=== PATIENT | male | born 1955 | race Hispanic/Latino ===

== ENCOUNTER 2017-04-26 01:29 | Inpatient (IN) | payer BC ==
[2017-04-12 15:22] LABS: MEAN CELL HGB 28.4 pg (26-34); MEAN CELL HGB CONCENTRATION 33.7 g/dL (33-37); MEAN CORP VOLUME 84.2 fL (78-100); MEAN PLATELET VOLUME 11.6 fL (7.8-11.0); RED CELL DISTRIBUTION WIDTH 12.6 % (11.5-14.5); WHITE BLOOD CELL 8.7 10^3/uL (4.5-11.0)
[2017-04-12 15:44] LABS: CARBON DIOXIDE 25.6 mmol/L (20.0-32)
[2017-04-25 16:15] VITALS: BP 147/88
[2017-04-26] VITALS (13 sets, daily range): BP systolic 128–157; BP diastolic 74–94
[~2017-04-26] VITALS: Ht 185.4 cm; Wt 109.3 kg
[~2017-04-26 01:29] MED LIST: CIPR500T3 PO; TAMS0.4C2 PO
[2017-04-26] MEDS ORDERED: LACTATED RINGERS 1,000 ML IV SCH ×3 (06:00→10:30)
[2017-04-26] MEDS ORDERED: NS 100ML 200 ML IV ONE (06:43)
[2017-04-26] MEDS ORDERED: VERSED ONE (06:43)
[2017-04-26] MEDS ORDERED: DIPRIVAN IV ONE (06:44)
[2017-04-26] MEDS ORDERED: SUBLIMAZE ONE (06:44)
[2017-04-26] MEDS ORDERED: SODIUM CHLORIDE IR ONE ×6 (07:37→22:33)
[2017-04-26] MEDS ORDERED: AMINOACETIC ACID IR ONE ×3 (07:38→09:22)
[2017-04-26] MEDS ORDERED: LEVAQUIN 100 ML IV ONE (08:00)
[2017-04-26] MEDS ORDERED: ZOFRAN IV PRN (10:00)
[2017-04-26] MEDS ORDERED: DEMEROL IV PRN ×2 (10:00→12:00)
[2017-04-26] MEDS ORDERED: SUBLIMAZE IV PRN (10:00)
[2017-04-26] MEDS ORDERED: LEVAQUIN IV SCH (10:00)
[2017-04-26] MEDS ORDERED: PHENERGAN IV PRN ×3 (10:00→14:00)
[2017-04-26] MEDS ORDERED: NORCO 7.5MG PO PRN (10:00)
[2017-04-26 10:22] LABS: BASOPHIL # 0.1 10^3/uL (0.0-0.1); BASOPHIL % 0.8 % (0.0-0.2); EOSINOPHIL # 0.2 10^3/uL (0.0-0.2); EOSINOPHIL % 1.9 % (0.0-5.0); HEMOGLOBIN 15.5 g/dL (13.9-16.3); MEAN CELL HGB 28.6 pg (26-34); MEAN CELL HGB CONCENTRATION 33.4 g/dL (33-37); MEAN CORP VOLUME 85.6 fL (78-100); MEAN PLATELET VOLUME 11.9 fL (7.8-11.0); MONOCYTES # 0.6 10^3/uL (0.3-0.8); MONOCYTES % 7.9 % (5.0-12.0); NEUTROPHIL # 5.1 10^3/uL (1.8-7.7); NEUTROPHILS % 64.1 % (41.0-85.0); RED CELL DISTRIBUTION WIDTH 12.8 % (11.5-14.5)
[2017-04-26] MEDS: LACTATED RINGERS 1,000 ML IV SCH ×2 (10:30→21:31)
[2017-04-26 10:46] LABS: CALCIUM 8.6 mg/dL (8.4-10.5)
--- NOTE | 2017-04-26 10:50 | NUR ---
arrivaL patient arrived to the floor from or. denies any pain. attached to special vitals machine. cbi is running and functioning properly. pink tinged fluid noted in the penn tube.
[2017-04-26] MEDS ORDERED: WATER ONE (11:01)
--- NOTE | 2017-04-26 14:41 | OPH ---
DATE OF SURGERY: 04/26/2017 PREOPERATIVE DIAGNOSES: Urinary retention, obstructive prostatic hyperplasia. FINAL DIAGNOSES: Urinary retention, obstructive prostatic hyperplasia. PROCEDURES: TUR of the prostate, stage 1. DESCRIPTION OF PROCEDURE: The patient was brought to the cystoscopy room and was put in sitting position and a low spinal anesthesia was then performed. After the successful spinal anesthesia, which was given by the WATER ANALYST, the patient was placed in the supine position for 5 minutes and then was placed in the lithotomy position on the cystoscopy table. The genitalia was then prepped and draped aseptically in the usual manner after removal of the indwelling ureteral Garnett catheter. First, the urethra was dilated with a 28-Greek curved sound and then a 26-resectoscope sheath was inserted per urethra up to the bladder. With the use of a 30-degree angle lens, the posterior urethra was visualized. Verumontanum was identified and there was a very large trilobar obstructive prostatic hyperplasia. The bladder was congested with some trabeculation, but no tumor, no calculi seen. Transurethral resection was then started at the bladder neck between 5 and 7 and was carried proximal to the verumontanum followed by the lateral lobes and some of the roof. After one hour of resection, there was still markedly enlarged prostate that is still left there. At this juncture, it was decided to do the TUR of the prostate in 2 stages. So, after one hour, I stopped the procedure to prevent reabsorption of fluid and some electrolytes imbalance. After adequate some hemostasis, the instrument was removed and a 22-Greek Garnett catheter was inserted per urethra up to the bladder and the balloon was inflated with 35 mL of fluid. The catheter was irrigated. The return was pinkish, clear. Again, procedure was terminated and the patient was then stabilized and transferred to the recovery room in stable condition. PLAN: To do the stage 2 operation sometime next week. Santos Valdez MD DR: AUGUSTA/rebeca JOB# [id number]
--- NOTE | 2017-04-26 16:02 | NUR ---
irrigation irrigated cbi with 30 ml of sterile water and expressed moderate amount of small clots. reattached cbi fluids.
[2017-04-26] MEDS ORDERED: URISPAS PO ONE (18:04)
[2017-04-26] MEDS: NORCO 7.5MG PO PRN (21:30)
--- NOTE | 2017-04-27 00:05 | NUR ---
CBI CONTINUES , STILL OLSON COLORED OUT PUT WITH BLOOD CLOTS. DENIES PAIN AT THIS TIME.
[2017-04-27 00:52] VITALS: BP 140/91
[2017-04-27] MEDS ORDERED: SODIUM CHLORIDE IR ONE ×3 (04:35→08:29)
[2017-04-27 05:08] VITALS: BP 136/86
[2017-04-27] MEDS: NORCO 7.5MG PO PRN (05:31)
--- NOTE | 2017-04-27 05:45 | NUR ---
IRRIGATED PT NGUYEN GOT A FEW SMALL BLOOD CLOTS. PT STATED WAS BETTER.
[2017-04-27 05:54] LABS: HEMOGLOBIN 15.5 g/dL (13.9-16.3); MEAN CELL HGB 28.8 pg (26-34); MEAN CELL HGB CONCENTRATION 33.3 g/dL (33-37); MEAN CORP VOLUME 86.3 fL (78-100); MEAN PLATELET VOLUME 11.9 fL (7.8-11.0); WHITE BLOOD CELL 10.8 10^3/uL (4.5-11.0)
[2017-04-27 05:59] LABS: CARBON DIOXIDE 28.1 mmol/L (20.0-32)
--- NOTE | 2017-04-27 06:20 | NUR ---
UNABLE TO CHART IN CBI ASSESSMENT STATED TO HIGH OF NUMBER. CBI INPUT WAS29,600 AND OUT WAS 32,575. URINE OUT PUT WAS 2,975.
[2017-04-27] MEDS: LACTATED RINGERS 1,000 ML IV SCH ×2 (08:52→16:30)
[2017-04-27] MEDS ORDERED: ZOFRAN IV PRN (10:00)
[2017-04-27] MEDS ORDERED: PHENERGAN IV PRN (10:00)
[2017-04-27] MEDS ORDERED: SUBLIMAZE IV PRN (10:00)
[2017-04-27] MEDS: LEVAQUIN IV SCH (10:00)
--- NOTE | 2017-04-27 10:00 | NUR ---
DISCHARGE PLAN CM VISITED WITH PATIENT AND FAMILY MEMBERS CONCERNING HIS DISCHARGE PLAN AND NEED. PATIENT LIVES @ HOME WITH AND IS INDEPENDENT ON ADLS. CM ADDRESSED PATIENTS SAFETY HANDOUT, NO QUESTIONS ASKED AND VOICED UNDERSTANDING. PATIENT AND FAMILY DENY CURRENT NEEDS @ THIS TIME. CONTACT INFORMATION PROVIDED. CURRENT GOAL FOR PATIENT IS TO RETURN BACK HOME TO ROUTINE CARE UPON DISCHARGE. NO FURTHER CM OR DISCHARGE NEEDS KNOWN @ THIS TIME.
[2017-04-27 11:49] VITALS: BP 139/84
--- NOTE | 2017-04-27 14:08 | PNH ---
DATE: 04/27/2017 SUBJECTIVE: This is postoperative day #1. The patient is afebrile, vital signs stable. Urine is clear. The patient feels comfortable. Indwelling urethral Garnett catheter is in place, draining clear urine. PLAN: So the plan is to discontinue the IV today and change to Hep-Lock and we will also discontinue the CBI. I will order the patient to get out of bed and force fluids. Santos Valdez MD DR: AUGUSTA/rebeca JOB# [id number] MAIA
[2017-04-27] MEDS: URISPAS PO SCH ×2 (15:20→21:03)
[2017-04-27 16:32] VITALS: BP 138/93
--- NOTE | 2017-04-27 16:53 | NUR ---
BILLING CONCERNS: PT'S VOICED CONCERNS REGARDING CO-PAYMENT AND HER PART OWED. SS REACHED OUT TO REMA RANDOLPH, FINANCIAL COUNSELOR TO COME AND SPEAK TO PT'S REGARDING CONCERNS. BLUE PHONE WAS UTILIZED AND REMA ANSWERED PT'S QUESTIONS AND CONCERNS REGARDING CO-PAY.
[2017-04-27 19:45] VITALS: BP 146/96
[2017-04-27 23:47] VITALS: BP 136/86
--- NOTE | 2017-04-28 02:21 | NUR ---
Pt resting quietly with eyes closed nad observed, family x1 at bedside
[2017-04-28 04:41] VITALS: BP 134/90
--- NOTE | 2017-04-28 06:33 | NUR ---
report to Shellie RODRIGUEZ
[2017-04-28 08:36] VITALS: BP 154/99
[2017-04-28] MEDS: URISPAS PO SCH (08:36)
[2017-04-28] MEDS: LEVAQUIN IV SCH (10:00)
[2017-04-28 12:15] VITALS: BP 142/96
[2017-04-28] MEDS ORDERED: FLAV100T PO (13:19)
--- NOTE | 2017-04-29 06:05 | PNH ---
DATE: 04/28/2017 DISCHARGE SUMMARY This is the second postop day, the patient is afebrile, and the urine is clear. The Garnett catheter was irrigated. Small clots must have strained, but after irrigation the urine became clear. After visiting again this afternoon, the urine is clear with the Garnett catheter, and it was to planned to discharge the patient, and we will do a second stage TUR of the prostate in a week. The case was discussed with the family and also with his and son. We will discontinue also the Hep-Lock, and we will follow up with the patient. Santos Valdez MD DR: AUGUSTA/rebeca JOB# [id number]
== END 2017-04-28 14:48 | disposition home or self-care (01) | DRG 714 ==
LOC: MS 01:29
PROVIDERS: ADMIT Urology; ATTEND Urology
PROC: 0VB08ZZ Excision of Prostate, Via Natural or Artificial Opening Endoscopic (ICD-10-PCS; principal; 2017-04-26 08:03)
DX: N40.1 Benign prostatic hyperplasia with lower urinary tract symptoms (principal); R33.8 Other retention of urine
CPT/HCPCS: 36415; 80048; 80051; 80053; 84153; 85025; 85027; 85610; 88305; 93005; A4338; J2250; J3010; J3490; J7030; J7050; J7120

== ENCOUNTER 2017-05-04 00:57 | Inpatient (IN) | payer BC ==
[~2017-05-04] VITALS: Ht 185.4 cm; Wt 106.3 kg
[2017-05-04] VITALS (17 sets, daily range): BP systolic 86–153; BP diastolic 47–88
[~2017-05-04 00:57] MED LIST changes: +FLAV100T PO
[2017-05-04] MEDS ORDERED: LACTATED RINGERS 1,000 ML ONE ×3 (05:19→16:57)
[2017-05-04] MEDS ORDERED: LEVAQUIN 100 ML IV ONE ×2 (05:53→08:53)
[2017-05-04] MEDS: LACTATED RINGERS 1,000 ML IV SCH ×2 (06:20→09:45)
[2017-05-04 06:25] LABS: BASOPHIL # 0.1 10^3/uL (0.0-0.1); BASOPHIL % 0.9 % (0.0-0.2); EOSINOPHIL # 0.6 10^3/uL (0.0-0.2); EOSINOPHIL % 6.9 % (0.0-5.0); HEMOGLOBIN 15.3 g/dL (13.9-16.3); LYMPHOCYTES # 1.9 10^3/uL (1.0-4.8); LYMPHOCYTES % 21.5 % (24.0-44.0); MEAN CELL HGB 29.1 pg (26-34); MEAN CELL HGB CONCENTRATION 34.3 g/dL (33-37); MEAN CORP VOLUME 84.8 fL (78-100); MONOCYTES # 0.8 10^3/uL (0.3-0.8); NEUTROPHIL # 5.3 10^3/uL (1.8-7.7); NEUTROPHILS % 61.4 % (41.0-85.0); RED CELL DISTRIBUTION WIDTH 12.8 % (11.5-14.5); WHITE BLOOD CELL 8.6 10^3/uL (4.5-11.0)
[2017-05-04 06:38] LABS: CALCIUM 9.1 mg/dL (8.4-10.5); CARBON DIOXIDE 25.9 mmol/L (20.0-32)
[2017-05-04] MEDS ORDERED: VERSED ONE (06:38)
[2017-05-04] MEDS ORDERED: ZOFRAN ONE ×2 (06:38→16:58)
[2017-05-04] MEDS ORDERED: DECADRON ONE ×2 (06:38→16:57)
[2017-05-04] MEDS ORDERED: TORADOL ONE (06:38)
[2017-05-04] MEDS ORDERED: XYLOCAINE ONE (06:38)
[2017-05-04] MEDS ORDERED: SUBLIMAZE ONE ×2 (06:39→16:58)
[2017-05-04] MEDS ORDERED: DIPRIVAN IV ONE (06:39)
[2017-05-04] MEDS ORDERED: TYLENOL PO ONE (07:00)
[2017-05-04] MEDS ORDERED: WATER ONE ×4 (07:15→17:00)
[2017-05-04] MEDS ORDERED: SODIUM CHLORIDE IR ONE ×3 (07:24→17:59)
[2017-05-04] MEDS ORDERED: AMINOACETIC ACID IR ONE ×6 (07:25→18:25)
[2017-05-04] MEDS ORDERED: ZOFRAN IV PRN (07:30)
[2017-05-04] MEDS ORDERED: SUBLIMAZE IV PRN ×2 (07:30→20:00)
[2017-05-04] MEDS ORDERED: DILAUDID IV PRN ×2 (07:30→20:00)
[2017-05-04 11:00] LABS: BASOPHIL # 0.1 10^3/uL (0.0-0.1); BASOPHIL % 0.7 % (0.0-0.2); EOSINOPHIL # 0.3 10^3/uL (0.0-0.2); EOSINOPHIL % 3.7 % (0.0-5.0); HEMOGLOBIN 14.5 g/dL (13.9-16.3); LYMPHOCYTES # 1.5 10^3/uL (1.0-4.8); LYMPHOCYTES % 17.9 % (24.0-44.0); MEAN CELL HGB 29.2 pg (26-34); MEAN CELL HGB CONCENTRATION 34.1 g/dL (33-37); MEAN CORP VOLUME 85.5 fL (78-100); MEAN PLATELET VOLUME 11.3 fL (7.8-11.0); MONOCYTES # 0.4 10^3/uL (0.3-0.8); MONOCYTES % 5.1 % (5.0-12.0); NEUTROPHIL # 5.9 10^3/uL (1.8-7.7); NEUTROPHILS % 72.1 % (41.0-85.0); RED CELL DISTRIBUTION WIDTH 12.9 % (11.5-14.5); WHITE BLOOD CELL 8.2 10^3/uL (4.5-11.0)
[2017-05-04] MEDS ORDERED: LACTATED RINGERS 1,000 ML IV SCH (11:00)
[2017-05-04] MEDS ORDERED: PHENERGAN IV PRN ×5 (11:00→23:00)
[2017-05-04] MEDS ORDERED: DEMEROL IV PRN ×5 (11:00→20:00)
[2017-05-04] MEDS ORDERED: LEVAQUIN IV SCH ×4 (11:00→19:30)
[2017-05-04] MEDS ORDERED: NORCO 7.5MG PO PRN ×3 (11:00→19:30)
[2017-05-04 11:17] LABS: CARBON DIOXIDE 26.9 mmol/L (20.0-32)
--- NOTE | 2017-05-04 11:25 | NUR ---
arrival pt arrived to room in bed. cbi infusing through [address] way catheter with pink tinged fluid noted in catheter bag. patient denies any pain. attached to special vitals machine and set to q15. given ice water per request
--- NOTE | 2017-05-04 11:46 | NUR ---
scd placed on bilateral calf scd's
--- NOTE | 2017-05-04 14:00 | NUR ---
cbi patients cbi has been dark zuniga and started to clot and clog. ordered h&h. informed dr. torres. Irrigated bladder with sterile water using a [address] torres arrived. Dr. Torres irrigated cbi several times and asked to call or crew. obtained consent for cysto with fulgaration
[2017-05-04] MEDS ORDERED: NS 3000ML IRR IR ONE ×5 (14:02→23:05)
[2017-05-04] MEDS ORDERED: URISPAS PO SCH (15:00)
[2017-05-04 16:10] LABS: HEMOGLOBIN 15.2 g/dL (13.9-16.3)
[2017-05-04] MEDS ORDERED: DILAUDID ONE (16:58)
--- NOTE | 2017-05-04 17:24 | NUR ---
or patient left floor for or
--- NOTE | 2017-05-04 17:31 | OPH ---
DATE OF SURGERY: 05/04/2017 PREOPERATIVE DIAGNOSIS: Marked obstructive prostatic hyperplasia. FINAL DIAGNOSIS: Marked obstructive prostatic hyperplasia. PROCEDURES: TUR of the prostate. DESCRIPTION OF PROCEDURE: The patient was brought to the cystoscopy room and was put in supine position on the cystoscopy table. After the patient was given a low spinal and general anesthesia, the patient was placed in the lithotomy position. He was then prepped and draped aseptically in the usual manner after removal of the Garnett catheter. First, a 24-Tuvaluan resectoscope sheath was inserted per urethra up to the bladder. With the use of the Foroblique lens, the posterior urethra was visualized and there was still a marked obstruction noted after the stage 1 TUR of the prostate was done a week ago. Bladder was inspected and there was some congestion noted. No tumor, no calculi seen. TUR of the prostate again was started near the bladder neck area and then the lateral lobes were resected first and some in the roof. After resection of the obstructive tissue for almost an hour, the procedure was terminated. All bleeders were promptly coagulated during the course of the resection. All tissue tips were then evacuated from the bladder. Again, the bladder was irrigated. Return flow was clear. The procedure was terminated. Instrument was removed and a Garnett catheter was inserted. The patient was then awakened and was transferred to the recovery room in stable condition. Santos Valdez MD DR: AUGUSTA/rebeca JOB# [id number]
[2017-05-04 19:29] LABS: BASOPHIL % 0.1 % (0.0-0.2); HEMOGLOBIN 12.3 g/dL (13.9-16.3); LYMPHOCYTES # 0.7 10^3/uL (1.0-4.8); LYMPHOCYTES % 3.4 % (24.0-44.0); MEAN CELL HGB 29.1 pg (26-34); MEAN CELL HGB CONCENTRATION 34.2 g/dL (33-37); MEAN CORP VOLUME 85.3 fL (78-100); MONOCYTES # 0.9 10^3/uL (0.3-0.8); MONOCYTES % 4.6 % (5.0-12.0); NEUTROPHIL # 18.2 10^3/uL (1.8-7.7); NEUTROPHILS % 91.5 % (41.0-85.0); RED CELL DISTRIBUTION WIDTH 12.5 % (11.5-14.5); WHITE BLOOD CELL 19.9 10^3/uL (4.5-11.0)
[2017-05-04] MEDS ORDERED: ROCEPHIN ONE (19:38)
[2017-05-04] MEDS ORDERED: NS 100ML 100 ML IV ONE (19:39)
[2017-05-04] MEDS ORDERED: EPHEDRINE SULFATE ONE (19:40)
[2017-05-04 19:41] LABS: CALCIUM 8.6 mg/dL (8.4-10.5); CARBON DIOXIDE 22.5 mmol/L (20.0-32)
[2017-05-04] MEDS ORDERED: ROCEPHIN 1,000 MG in NS 100ML 100 ML IV ONE (20:00)
[2017-05-04] MEDS: URISPAS PO SCH (20:47)
[2017-05-04] MEDS: NORCO 7.5MG PO PRN (20:47)
[2017-05-04 21:06] LABS: DIFFERENTIAL COMMENT NORMAL; LYMPHOCYTE 4 % (25-36); MONOCYTE 7 % (3-9); SEGMENTED NEUTROPHILS 81 % (31-76)
[2017-05-04 23:53] LABS: BASOPHIL % 0.1 % (0.0-0.2); HEMOGLOBIN 12.5 g/dL (13.9-16.3); LYMPHOCYTES # 0.5 10^3/uL (1.0-4.8); LYMPHOCYTES % 2.9 % (24.0-44.0); MEAN CELL HGB 29.2 pg (26-34); MEAN CELL HGB CONCENTRATION 34.3 g/dL (33-37); MEAN PLATELET VOLUME 11.2 fL (7.8-11.0); MONOCYTES # 0.4 10^3/uL (0.3-0.8); MONOCYTES % 2.2 % (5.0-12.0); NEUTROPHIL # 16.4 10^3/uL (1.8-7.7); NEUTROPHILS % 94.3 % (41.0-85.0); RED CELL DISTRIBUTION WIDTH 12.6 % (11.5-14.5); WHITE BLOOD CELL 17.4 10^3/uL (4.5-11.0)
[2017-05-05] VITALS (7 sets, daily range): BP systolic 103–127; BP diastolic 61–78
[2017-05-05 00:09] LABS: CALCIUM 8.4 mg/dL (8.4-10.5)
[2017-05-05] MEDS: LACTATED RINGERS 1,000 ML IV SCH ×3 (02:12→15:37)
[2017-05-05] MEDS ORDERED: NS 3000ML IRR IR ONE (04:31)
[2017-05-05] MEDS: NORCO 7.5MG PO PRN ×2 (04:53→15:18)
[2017-05-05 05:22] LABS: HEMOGLOBIN 11.7 g/dL (13.9-16.3); MEAN CELL HGB 28.9 pg (26-34); MEAN CELL HGB CONCENTRATION 33.5 g/dL (33-37); MEAN CORP VOLUME 86.2 fL (78-100); MEAN PLATELET VOLUME 11.1 fL (7.8-11.0); RED CELL DISTRIBUTION WIDTH 12.7 % (11.5-14.5); WHITE BLOOD CELL 14.5 10^3/uL (4.5-11.0)
[2017-05-05 05:33] LABS: CARBON DIOXIDE 26.7 mmol/L (20.0-32)
--- NOTE | 2017-05-05 06:25 | NUR ---
CBI INPUT 34,500 ML OUT PUT 36,950. URINE OUT PUT IS 2,450. UNABLE TO CHARTY ON CBI INTERVENTION SAYS IT IS TO HIGH OF A NUMBER.
[2017-05-05] MEDS ORDERED: ZOFRAN IV PRN ×2 (07:30)
[2017-05-05] MEDS ORDERED: DILAUDID IV PRN ×2 (07:30)
[2017-05-05] MEDS ORDERED: SUBLIMAZE IV PRN ×2 (07:30)
[2017-05-05] MEDS: URISPAS PO SCH ×3 (07:51→20:50)
[2017-05-05] MEDS ORDERED: LEVAQUIN 100 ML IV ONE ×2 (08:53)
--- NOTE | 2017-05-05 10:30 | NUR ---
DISCHARGE PLAN CM VISITED WITH PATIENT AND FAMILY MEMBERS CONCERNING HIS DISCHARGE PLAN AND NEED. PATIENT LIVES @ HOME WITH , IS INDEPENDENT ON ADLS AND WORKS DAILY. CM ADDRESSED PATIENTS SAFETY HANDOUT, NO QUESTIONS ASKED AND VOICED UNDERSTANDING. PATIENT AND FAMILY DENY CURRENT NEEDS @ THIS TIME WITH CONTACT INFORMATION PROVIDED. CURRENT GOAL FOR PATIENT IS TO RETURN BACK HOME TO ROUTINE CARE UPON DISCHARGE. NO FURTHER CM OR DISCHARGE NEEDS KNOWN @ THIS TIME.
[2017-05-05] MEDS ORDERED: LEVAQUIN IV SCH (11:00)
[2017-05-05] MEDS ORDERED: TORADOL ONE (17:11)
--- NOTE | 2017-05-05 18:44 | NUR ---
report received report from offgoing shift
[2017-05-06] MEDS: LACTATED RINGERS 1,000 ML IV SCH ×3 (01:12→19:26)
[2017-05-06 04:37] VITALS: BP 105/61
[2017-05-06 05:31] LABS: BASOPHIL # 0.1 10^3/uL (0.0-0.1); BASOPHIL % 0.4 % (0.0-0.2); EOSINOPHIL # 0.5 10^3/uL (0.0-0.2); EOSINOPHIL % 4.1 % (0.0-5.0); HEMOGLOBIN 9.3 g/dL (13.9-16.3); LYMPHOCYTES # 2.1 10^3/uL (1.0-4.8); LYMPHOCYTES % 16.1 % (24.0-44.0); MEAN CELL HGB 29.2 pg (26-34); MEAN CELL HGB CONCENTRATION 32.7 g/dL (33-37); MONOCYTES # 1.4 10^3/uL (0.3-0.8); MONOCYTES % 10.6 % (5.0-12.0); NEUTROPHIL # 8.8 10^3/uL (1.8-7.7); NEUTROPHILS % 68.4 % (41.0-85.0); RED CELL DISTRIBUTION WIDTH 12.8 % (11.5-14.5); WHITE BLOOD CELL 12.8 10^3/uL (4.5-11.0)
--- NOTE | 2017-05-06 06:45 | NUR ---
report report given to o/c shift
[2017-05-06] MEDS: URISPAS PO SCH ×3 (09:17→21:09)
[2017-05-06] MEDS: NORCO 7.5MG PO PRN ×3 (09:17→21:10)
[2017-05-06 11:17] VITALS: BP 111/65
[2017-05-06 11:57] VITALS: BP 100/61
--- NOTE | 2017-05-06 12:29 | PNH ---
DATE: 05/06/2017 SUBJECTIVE: Postoperative day #2, the patient is afebrile. Urine is clear. The Garnett catheter was irrigated and no clots obtained and the urine is clear; however, the hemoglobin this morning was 9.3, probably due to some dilution, but the vital signs are stable and the white count is down to 12,800. PLAN: We will continue the IV fluids today and we will just observe the patient further. Santos Valdez MD DR: AUGUSTA/rebeca JOB# [id number]
--- NOTE | 2017-05-06 13:12 | OPH ---
DATE OF SURGERY: 05/04/2017 The patient was brought back to the OR, on the evening of 05/04/2017 because of sudden onset of severe gross hematuria, which is not controlled by irrigation or by CBI. He has a TUR of the prostate stage 2 done this morning and immediate postop, the patient's urine was clear with a CBI, but it started to bleed profusely late in the afternoon. PREOPERATIVE DIAGNOSIS: Gross hematuria status post TURP. PROCEDURES: Cystoscopy, evacuation of blood clots with the prostatic fulguration. DESCRIPTION OF PROCEDURE: The patient was brought into the cystoscopy room and was put in supine position on the cystoscopy table. After the patient was given a satisfactory and adequate LMA general anesthesia, the patient was placed in the lithotomy position. The genitalia was then prepped and draped aseptically in the usual manner. After removal of the Garnett catheter, a 24-New Zealander resectoscope sheath was then inserted per urethra up to the bladder and the bladder was then irrigated initially to remove all the blood clots in the bladder. After removal of the blood clots in the bladder and the prostatic fossa, with a 30-degree angle lens, the posterior urethra was visualized and all the blood clots were then resected, which was adherent to the prostatic fossa and also some of the area, which was oozing, was then fulgurated after adequate extraction of the blood clots that was adherent to the prostatic fossa all around from the lateral lobes to the roof, then to the floor. The bladder was again irrigated and after that the return flow was clear. It was almost more than an hour to accomplish all this result. After that, the instrument was removed and a Garnett catheter was inserted and the balloon was inflated with 30 mL of sterile water. The catheter was again irrigated. The return flow was clear. The procedure was terminated. The patient was awakened, was transferred to the recovery room in stable condition. Santos Valdez MD DR: AUGUSTA/rebeca JOB# [id number]
--- NOTE | 2017-05-06 13:14 | PNH ---
DATE: 05/06/2017 This is postoperative day #1, the patient is afebrile, urine is clear. Bladder was irrigated and 1 small clot was removed, but it was very clear. So at this time, the vital signs are stable. So the CBI will be discontinued today. The hemoglobin this morning was 11.7 and the WBC is 14,500. We will continue giving him Levaquin once a day. The patient feels comfortable. He is a little bit weak, but vital signs are stable. Santos Valdez MD DR: AUGUSTA/rebeca JOB# [id number]
[2017-05-06 15:30] VITALS: BP 105/60
--- NOTE | 2017-05-06 18:34 | NUR ---
REPORT REPORT RECEIVED FROM CHEIKH RODRIGUEZ ASSUMED CARE OF PT
[2017-05-06 19:21] VITALS: BP 110/66
[2017-05-07] VITALS: BP 115/63
[2017-05-07] MEDS: LACTATED RINGERS 1,000 ML IV SCH (04:40)
[2017-05-07 05:11] VITALS: BP 119/68
[2017-05-07 06:25] LABS: BASOPHIL # 0.1 10^3/uL (0.0-0.1); BASOPHIL % 0.7 % (0.0-0.2); EOSINOPHIL # 0.7 10^3/uL (0.0-0.2); HEMOGLOBIN 10.3 g/dL (13.9-16.3); LYMPHOCYTES # 2.5 10^3/uL (1.0-4.8); LYMPHOCYTES % 21.6 % (24.0-44.0); MEAN CELL HGB 29.1 pg (26-34); MEAN CELL HGB CONCENTRATION 32.8 g/dL (33-37); MEAN CORP VOLUME 88.7 fL (78-100); MEAN PLATELET VOLUME 10.5 fL (7.8-11.0); MONOCYTES # 0.9 10^3/uL (0.3-0.8); MONOCYTES % 7.9 % (5.0-12.0); NEUTROPHIL # 7.3 10^3/uL (1.8-7.7); NEUTROPHILS % 63.2 % (41.0-85.0); RED CELL DISTRIBUTION WIDTH 12.7 % (11.5-14.5); WHITE BLOOD CELL 11.6 10^3/uL (4.5-11.0)
--- NOTE | 2017-05-07 06:40 | NUR ---
REPORT Received report, assumed care for patient.
[2017-05-07 06:44] LABS: CARBON DIOXIDE 28.9 mmol/L (20.0-32)
[2017-05-07] MEDS: URISPAS PO SCH (08:01)
[2017-05-07 09:08] VITALS: BP 124/70
--- NOTE | 2017-05-07 11:19 | NUR ---
@bedside. Orders to discharge patient home WITH catheter. He will see him in his office this @1000.
[2017-05-07] MEDS ORDERED: CIPR500T86 PO (11:33)
[2017-05-07] MEDS ORDERED: TAMS0.4C2 PO (11:56)
[2017-05-07 12:12] VITALS: BP 124/70
--- NOTE | 2017-05-07 12:33 | OPH ---
DATE OF SURGERY: 05/07/2017 This is postoperative day #3, the patient is afebrile. The patient still has an indwelling Garnett catheter. Urine is clear and the hemoglobin today went up to 10.3, the white count is 11,000. Electrolytes, BUN, and creatinine within normal range. Vital signs are stable. Case was discussed with the patient and his family and he will be discharged with an indwelling Garnett catheter. He is coming back to the office in 5 days for removal of Garnett catheter. The patient is doing well at this time. Santos Valdez MD DR: AUGUSTA/rebeca JOB# [id number]
--- NOTE | 2017-05-07 12:52 | NUR ---
DISCHARGE Patient discharged home. Relinquished care for patient.
--- NOTE | 2017-05-17 15:34 | PNH ---
DATE: SUBJECTIVE: This patient was admitted for a stage 2 TUR of the prostate. The patient has urinary retention and has an indwelling Garnett catheter. Due to the marked enlargement of the prostate, we scheduled this operation into 2 stages. The patient underwent a TUR of the prostate for stage 2 of the operation and was doing well, but in the afternoon, the patient started to bleed heavily and the hemoglobin dropped to 9 and he subsequently was brought to the operating room and prostatic fulguration was then performed. After that, the following day, the patient was stable and the first day postop the urine was clearing up and CBI was discontinued. 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 The urine became clear, and the third day postop the urine was clear, the hemoglobin went up to around 10. PLAN: He will be sent home with an indwelling Garnett catheter and will be followed up in the office next week for removal of the Garnett catheter. Santos Valdez MD DR: AUGUSTA/rebeca JOB# [id number]
--- NOTE | 2017-06-13 12:59 | PNH ---
DATE: PREOPERATIVE DIAGNOSES: Urinary retention, marked obstructive prostatic hyperplasia. FINAL DIAGNOSES: Urinary retention, marked obstructive prostatic hyperplasia. PROCEDURE: TUR of the prostate, stage 2. HISTORY OF THE PRESENTING ILLNESS: This is a 61-year-old white male who was re-admitted to the hospital because of urinary retention. The patient had a recent TUR of the prostate and underwent stage 1, but due to the marked enlargement of the prostate, he was re-admitted this time for a second stage TUR of the prostate. PERTINENT PHYSICAL EXAMINATION: The patient is well developed ____ in no acute distress. ABDOMEN: Soft, no organomegaly. GENITALIA: The patient has presence of an indwelling ureteral Garnett catheter. LABORATORY DATA: CBC, electrolytes, and BUN and creatinine within normal range. HOSPITAL COURSE: The patient underwent a TUR of the prostate, stage 2, with no operative complication noted. However, late in the afternoon, the patient started to bleed profusely, gross hematuria, with lots of blood clots. The patient was then brought back to the cystoscopy room and the area of the prostatic area was then fulgurated with evacuation of multiple blood clots in the bladder. After that was done, the urine became clear and the procedure was terminated. He had a Garnett catheter again with the CBI running. Hemoglobin went down from 12.5 to 11.7, and on the second day postop, the hemoglobin went down to 9.3, but on the third day postop, the patient's hemoglobin went up to 10.3, which did not require any blood transfusion. DISCHARGING DISPOSITION: The patient continued to improve, and on the third day postop, the patient's vital signs were stable, the urine cleared up, and he will be discharged with the presence of an indwelling Garnett catheter, and that will be removed after a week in my office. Santos Valdez MD DR: AUGUSTA/rebeca JOB# [id number]
== END 2017-05-07 11:44 | disposition home or self-care (01) | DRG 714 ==
LOC: MS 00:57
PROVIDERS: ADMIT Urology; ATTEND Urology
PROC: 0V508ZZ Destruction of Prostate, Via Natural or Artificial Opening Endoscopic (ICD-10-PCS; 2017-05-04)
PROC: 0TCB8ZZ Extirpation of Matter from Bladder, Via Natural or Artificial Opening Endoscopic (ICD-10-PCS; 2017-05-04)
PROC: 0VB08ZZ Excision of Prostate, Via Natural or Artificial Opening Endoscopic (ICD-10-PCS; principal; 2017-05-04 09:00)
DX: N40.1 Benign prostatic hyperplasia with lower urinary tract symptoms (principal); R31.9 Hematuria, unspecified; R33.8 Other retention of urine
CPT/HCPCS: 36415; 80048; 80051; 82565; 84520; 85014; 85018; 85025; 85027; 88305; J0696; J1100; J1170; J1885; J1956; J2175; J2250; J2405; J3010; J3490; J7030; J7050; J7120